=== PATIENT | male | born 1960 | race Caucasian/White ===

== ENCOUNTER 2018-06-17 20:03 | Emergency (ER) | payer SELFPAY ==
[~2018-06-17] VITALS: Ht 172.7 cm; Wt 93.2 kg
[2018-06-17] MEDS ORDERED: ASPIRIN 325 MG TAB PO ONE (20:15)
[2018-06-17 20:46] LABS: BASO # 0.1 10^3/uL (0.0-0.2); BASO % 0.9 % (0.0-1.0); EOS # 0.4 10^3/uL (0.0-0.50); EOS % 7.8 % (0.0-3.0); HEMOGLOBIN 11.8 g/dl (13.5-17.5); LYMPH % 18.1 % (24.0-44.0); MEAN CORPUSCULAR HEMOGLOBIN 28.4 pg (27.0-33.0); MEAN CORPUSCULAR HGB CONC 31.9 g/dl (32.0-36.5); MEAN CORPUSCULAR VOLUME 89.2 fl (80.0-96.0); MONO # 0.5 10^3/uL (0.0-0.8); MONO % 9.6 % (0.0-5.0); NEUTROPHILS # 3.6 10^3/uL (1.8-7.7); NEUTROPHILS % 63.2 % (36.0-66.0); PLATELET COUNT, AUTOMATED 191 10^3/uL (150-450); RED BLOOD COUNT 4.15 10^6/uL (4.30-6.10); WHITE BLOOD COUNT 5.7 10^3/uL (4.0-10.0)
[2018-06-17 20:58] LABS: INR 1.06; PROTHROMBIN TIME 13.9 SECONDS (12.1-14.4)
[2018-06-17 21:19] LABS: BLOOD UREA NITROGEN 13 MG/DL (7-18); CALCIUM LEVEL 8.2 MG/DL (8.5-10.1); CARBON DIOXIDE LEVEL 30 MEQ/L (21-32); CHLORIDE LEVEL 105 MEQ/L (98-107); CPK CREATINE PHOSPHOKINASE 106 U/L (39-308); CREATININE FOR GFR 1.12 MG/DL (0.70-1.30); GLOMERULAR FILTRATION RATE > 60.0 (>56); GLUCOSE, FASTING 95 MG/DL (70-100); MB/CK RELATIVE INDEX 1.51 (< OR =4); POTASSIUM SERUM 4.1 MEQ/L (3.5-5.1); SODIUM LEVEL 142 MEQ/L (136-145); TROPONIN I < 0.02 NG/ML (< 0.10)
--- NOTE | 2018-06-17 21:23 | ECGEPIP ---
Stationary ECG Study 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
[2018-06-17] MEDS ORDERED: KETOROLAC 30 MG/ML VIAL (J1885) IV ONE (21:30)
[2018-06-17] MEDS ORDERED: NS 1,000 ML IV ONE (21:30)
[2018-06-17] MEDS ORDERED: ISOVUE-370 76% 100ML VIAL (Q9967) As Ordered ONE (21:34)
--- NOTE | 2018-06-17 22:38 | REPVR ---
EXAM: CT Angiography Chest With Contrast EXAM DATE/TIME: 06/17/2018 9:39 PM CLINICAL HISTORY: 58 years old, male; Chest pain; Additional info: Cp/dysp/likely R effusion TECHNIQUE: Imaging protocol: Axial computed tomographic angiography images of the chest with intravenous contrast using CT angiography protocol. Coronal and sagittal reformatted images were created and reviewed. 3D rendering: MIP reconstructed images were created and reviewed. Radiation optimization: All CT scans at this facility use at least one of these dose optimization techniques: automated exposure control; mA and/or kV adjustment per patient size (includes targeted exams where dose is matched to clinical indication); or iterative reconstruction. Contrast material: ISO 370; Contrast volume: 75 ml; Contrast route: IV COMPARISON: No relevant prior studies available. FINDINGS: No focal pulmonary artery filling defect to suggest acute pulmonary embolus. No thoracic aortic aneurysm or dissection. 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 Retrosternal soft tissue stranding, with osseous resorption and indistinct margins of the distal manubrium and upper sternum. Subcutaneous edema is also present at the same craniocaudal level superficial to the sternomanubrial joint Large right pleural effusion occupying perhaps one third of right hemithorax volume, with adjacent atelectasis. Miniscule left pleural effusion. No evidence of pulmonary edema or pneumothorax. No focal pneumonia or central endobronchial process. No lung mass. IMPRESSION: No evidence of acute pulmonary embolus. Concern for anterior mediastinitis with retrosternal edema or phlegmon, superficial subcutaneous edema at the same level, and osseous irregularity and resorption of the distal manubrium and upper sternum raising a question of an infectious process. Large right pleural effusion with atelectasis but no pulmonary edema or focal pneumonia Electronically signed by: Raheem Mueller On 06/17/2018 22:38:25 PM
[2018-06-17] MEDS ORDERED: PIPERACILLIN/TAZOBACTAM SOD 3.375 GM in D5W MINI-BAG PLUS 50 ML IV ONE (23:15)
[2018-06-17] MEDS ORDERED: VANCOMYCIN HCL 1,000 MG, VIAL MATE ADAPTER 1 EACH in D5W 250 ML IV ONE (23:15)
[2018-06-18] MEDS ORDERED: NORCO 5/325MG TABLET (BULK FOR ED) PO ONE (00:45)
[2018-06-18 01:10] VITALS: BP 143/64
--- NOTE | 2018-06-18 14:56 | ED PDOC ---
Post-Departure Follow-Up dr bass faxed formal report of ct chest for fu Yonis Malave MD June 18, 2018 14:56
== END 2018-06-18 01:11 | disposition home or self-care (01) ==
LOC: M ED 20:03
DX: S22.23XK Sternal manubrial dissociation, subsequent encounter for fracture with nonunion (principal); X58.XXXD Exposure to other specified factors, subsequent encounter; Y92.89 Other specified places as the place of occurrence of the external cause; Z98.890 Other specified postprocedural states; I10 Essential (primary) hypertension; I25.10 Atherosclerotic heart disease of native coronary artery without angina pectoris; Z91.018 Allergy to other foods; Z87.891 Personal history of nicotine dependence
CPT/HCPCS: 36415; 71275; 80048; 82550; 82553; 84484; 85025; 85610; 85730; 93005; 96361; 96365; 96367; 96375; 99285; J1885; J2543; J3370; Q9967